=== PATIENT | female | born 1995 | race Hispanic/Latino ===

== ENCOUNTER 2016-10-13 12:18 | Observation (INO) | payer OTHER ==
[~2016-10-13] VITALS: Ht 160 cm; Wt 117.9 kg
[~2016-10-13 12:18] MED LIST: DOCU100C37 PO; FERR-74 PO; HYDR-3812 PO; IBUP-1773 PO; NITR-65 PO; PREN1TAB19 PO
[2016-10-13] MEDS ORDERED: cefTRIAXone INJECTION 2,000 MG in NS (IVPB) 50 ML IV ONE (13:00)
[2016-10-13] MEDS ORDERED: NS IV 1000 ML 1,000 ML IV SCH ×2 (13:00→15:30)
[2016-10-13] MEDS ORDERED: fentaNYL INJECTION 100 MCG/2 ML AMP IVP ONE ×2 (13:00→15:45)
[2016-10-13] MEDS ORDERED: methylPREDNISolone 125 MG (Solu-MEDROL) VIAL IVP ONE (13:00)
--- NOTE | 2016-10-13 13:07 | ED EENT ---
History of Present Illness General Chief Complaint: Oral/Throat Problems Stated Complaint: R SIDE OF FACE SWELLING, SWALLOWING DISCOMFORT Nursing Triage Note: PT STATES HAS HAD SORETHROAT FOR APPROX 2 WEEKS, R SIDE SWOLLEN AND VERY SORE UNABLE TO DRINK, SPITTING OUT OWN SLAVIA, BAD TASTE IN MOUTH, WAS SEEN AT [facility] LAST FRIDAY AND PUT ON ZYRTEC, STATES HAS FELT FEVERISH AT TIMES Source: patient, family History of Present Illness Time seen by provider: 13:02 Initial Comments This 20-year-old female presents with a severe progressive sore throat of 2 weeks' duration. The patient is unable to swallow her secretions. The patient denies airway impingement. The patient denies associated severe headache, stiff neck, productive cough, shortness of breath, nausea vomiting or diarrhea, chest pain or palpitations, or significant fever or chills. Patient had a similar but less severe presentation in the past requiring antibiotics. Allergies and Home Medications Allergies Coded Allergies: No Known Drug Allergies (Unverified , 11/16/15) Home Medications No Active Prescriptions or Reported Meds Review of Systems Constitutional: No chills, No fever Eyes: Denies Blurred Vision, Denies Pain Ears: Denies Pain, Denies Purulent Discharge Nose: denies epistaxis Mouth: denies swelling, denies bloody discharge, denies purulent discharge Throat: see HPI, pain, swelling, denies neck stiffness, painful swallowing, difficulty with fluids Respiratory: No cough, No short of breath Cardiovascular: No chest pain, No palpitations, No syncope Gastrointestinal: No abdominal pain, No diarrhea, No nausea, No vomiting : No Musculoskeletal: No back pain, No joint swelling Skin: No rash Neurological: No Symptoms Reported Hematologic/Lymphatic: No Symptoms Reported Past Riysgcu-Fyichx-Dwqusf Hx Patient Social History Alcohol Use: Denies Use Recreational Drug Use: No Smoking Status: Never a Smoker Recent Foreign Travel: No Contact w/Someone Who Travel: No Recent Infectious Disease Expo: No Recent Hopitalizations: No Ebola Symptoms: Denies Symptoms Listed Immunizations Up To Date PED Vaccines UTD: Yes Date of Influenza Vaccine: May 09, 2016 Seasonal Allergies Seasonal Allergies: No Respiratory Hx Respiratory Disorders: Yes Respiratory Disorders: Asthma Cardiovascular Hx Cardiac Disorders: No Neurological Hx Neurological Disorders: No Reproductive System Hx Reproductive Disorders: No Sexually Transmitted Disease: No HIV/AIDS: No Genitourinary Hx Genitourinary Disorders: No Gastrointestinal Hx Gastrointestinal Disorders: No Musculoskeletal Hx Musculoskeletal Disorders: No Endocrine Hx Endocrine Disorders: No HEENT HX ENT Disorders: No Cancer Hx Cancer: No Psychosocial Hx Psychiatric Problems: No Integumentary HX Skin/Integumentary Disorder: No Blood Transfusions Hx Blood Disorders: No Adverse Reaction to a Blood Tr: No Reviewed Nursing Assessment Reviewed/Agree w Nursing PMH: Yes Physical Exam Vital Signs Vital Sign - Last 12Hours 10/13/16 12:53 Temp 98.5 Pulse 100 Resp 18 B/P (MAP) 120/99 General Appearance: WD/WN, mild distress Ears: bilateral ear auricle normal Nose: normal inspection Mouth/Throat: No mandibular swelling, pharynx swelling, pharynx tenderness, No tongue swollen, tonsillar swelling, voice changes Neck: non-tender, full range of motion, supple, normal inspection Cardiovascular: regular rate, rhythm, no murmur Respiratory: chest non-tender, lungs clear, normal breath sounds Progress/Results/Core Measures Results/Orders Lab Results Laboratory Tests Test 10/13/16 12:50 10/13/16 13:32 10/13/16 14:03 Range/Units Group A Streptococcus Screen NEGATIVE NEGATIVE White Blood Count 17.5 H 4.3-11.0 10^3/uL Red Blood Count 4.57 4.35-5.85 10^6/uL Hemoglobin 10.8 L 11.5-16.0 G/DL Hematocrit 34 L 35-52 % Mean Corpuscular Volume 74 L 80-99 FL Mean Corpuscular Hemoglobin 24 L 25-34 PG Mean Corpuscular Hemoglobin Concent 32 32-36 G/DL Red Cell Distribution Width 15.5 H 10.0-14.5 % Platelet Count 432 H 130-400 10^3/uL Mean Platelet Volume 10.6 H 7.4-10.4 FL Neutrophils (%) (Auto) 81 H 42-75 % Lymphocytes (%) (Auto) 11 L 12-44 % Monocytes (%) (Auto) 7 0-12 % Eosinophils (%) (Auto) 1 0-10 % Basophils (%) (Auto) 0 0-10 % Neutrophils # (Auto) 14.2 H 1.8-7.8 X 10^3 Lymphocytes # (Auto) 2.0 1.0-4.0 X 10^3 Monocytes # (Auto) 1.3 H 0.0-1.0 X 10^3 Eosinophils # (Auto) 0.1 0.0-0.3 10^3/uL Basophils # (Auto) 0.0 0.0-0.1 10^3/uL Neutrophils % (Manual) 79 % Lymphocytes % (Manual) 16 % Monocytes % (Manual) 5 % Eosinophils % (Manual) 0 % Basophils % (Manual) 0 % Band Neutrophils 0 % Blood Morphology Comment NORMAL Lactic Acid Level 0.70 0.50-2.00 MMOL/L My Orders Orders - LYUBOV ALMONTE MD Cbc With Automated Diff (10/13/16 12:57) Blood Culture (10/13/16 12:57) Lactic Acid Analyzer (10/13/16 12:57) Ct Neck (Soft Tissue) W (10/13/16 12:59) Ns Iv 1000 Ml (Sodium Chloride 0.9%) (10/13/16 13:00) Fentanyl Injection (Sublimaze Injection (10/13/16 13:00) Methylprednisolone Sod Succ (Solu-Medrol (10/13/16 13:00) Ceftriaxone Injection (Rocephin Injectio (10/13/16 13:00) Iohexol Injection (Omnipaque 350 Mg/Ml 1 (10/13/16 13:15) Ns (Ivpb) (Sodium Chloride 0.9% Ivpb Bag (10/13/16 13:15) Rapid Strep A Screen (10/13/16 13:32) Manual Differential (10/13/16 13:32) Dexamethasone Injection (Decadron Inject (10/13/16 15:30) Cefuroxime Injection (Zinacef Injection) (10/13/16 15:30) Ns Iv 1000 Ml (Sodium Chloride 0.9%) (10/13/16 15:30) Medications Given in ED Current Medications Medications Dose Ordered Sig/Chasidy Route Start Time Stop Time Status Last Admin Dose Admin Ceftriaxone Sodium 2000 mg/ Sodium Chloride 50 ml @ 100 mls/hr ONCE ONCE IV 10/13/16 13:00 10/13/16 13:29 DC 10/13/16 14:00 100 MLS/HR Fentanyl Citrate 50 mcg ONCE ONCE IVP 10/13/16 13:00 10/13/16 13:02 DC 10/13/16 13:16 50 MCG Iohexol 75 ml ONCE ONCE IV 10/13/16 13:15 10/13/16 13:16 DC 10/13/16 14:34 75 ML Methylprednisolone Sodium Succinate 125 mg ONCE ONCE IVP 10/13/16 13:00 10/13/16 13:02 DC 10/13/16 13:15 125 MG Sodium Chloride 100 ml ONCE ONCE IV 10/13/16 13:15 10/13/16 13:16 DC 10/13/16 14:34 80 ML Vital Signs/I&O Vital Sign - Last 12Hours 10/13/16 12:53 Temp 98.5 Pulse 100 Resp 18 B/P (MAP) 120/99 Progress Note : Time: 15:35 Progress Note The patient's white count was 17,000. Her strep screen was negative. CT of the neck demonstrated what I interpreted as a right peritonsillar abscess. Initial treatment consisted of 2 g of Rocephin IV, 125 mg of Solu-Medrol IV and 50 g of fentanyl IV. Telephone consultation was undertaken with Dr. Drummond and associates. Kings Cramer, nurse practitioner was kind enough to admit the patient Dr. Drummond service. We discussed treatment and her wishes were for cefuroxime 1.5 g IV every 12 hrs, Decadron 8 mg IV every 8 hrs, and CONTINUE with fentanyl and Zofran for pain and nausea as needed. The patient was sent to a stepdown unit until improvement in her upper airway as the patient is still unwilling to attempt to swallow her secretions or take clear liquids. Departure Communication Time/Spoke to Admitting Phy: 15:38 Communication Kings Cramer NP for Dr. Drummond. Impression Impression: Primary Impression: Peritonsillar abscess Disposition: ADMITTED INPATIENT Condition: Improved Decision to Admit Reason: Admit from ER (General) Decision to Admit/Date: Oct 13, 2016 Time/Decision to Admit Time: 15:39 Departure-Patient Inst. Referrals: SHELLIE MONTILLA MD (PCP/Family) Primary Care Physician Scripts No Active Prescriptions or Reported Meds LYUBOV ALMONTE MD Oct 13, 2016 13:07
[2016-10-13] MEDS ORDERED: IOHEXOL 350 MG/ML 100 ML (OMNIPAQUE 350) VIAL IV ONE (13:15)
[2016-10-13] MEDS ORDERED: NS 100 ML (IVPB) BAG IV ONE (13:15)
[2016-10-13 13:51] LABS: BASOPHILS % (AUTO) 0 % (0-10); EOSINOPHILS # (AUTO) 0.1 10^3/uL (0.0-0.3); EOSINOPHILS % (AUTO) 1 % (0-10); LYMPHOCYTES % (AUTO) 11 % (12-44); MEAN CORPUSCULAR HEMOGLOBIN 24 PG (25-34); MEAN CORPUSCULAR HGB CONC 32 G/DL (32-36); MEAN CORPUSCULAR VOLUME 74 FL (80-99); MEAN PLATELET VOLUME 10.6 FL (7.4-10.4); MONOCYTES # (AUTO) 1.3 X 10^3 (0.0-1.0); MONOCYTES % (AUTO) 7 % (0-12); NEUTROPHILS # (AUTO) 14.2 X 10^3 (1.8-7.8); NEUTROPHILS % (AUTO) 81 % (42-75); PLATELET COUNT 432 10^3/uL (130-400); RED BLOOD COUNT 4.57 10^6/uL (4.35-5.85); RED CELL DISTRIBUTION WIDTH 15.5 % (10.0-14.5); WHITE BLOOD COUNT 17.5 10^3/uL (4.3-11.0)
[2016-10-13 14:17] LABS: BAND NEUTROPHILS 0 %; BASOPHILS % (MANUAL) 0 %; EOSINOPHILS % (MANUAL) 0 %; LYMPHOCYTES % (MANUAL) 16 %; NEUTROPHILS % (MANUAL) 79 %
[2016-10-13] MEDS ORDERED: CEFUROXIME INJECTION 1,500 MG in NS (IVPB) 50 ML IV ONE (15:30)
[2016-10-13] MEDS ORDERED: DEXAMETHASONE 4 MG/ML SDV (DECADRON) IV ONE (15:30)
--- NOTE | 2016-10-13 15:36 | Diagnostic Imaging Report ---
PROCEDURE: CT neck soft tissue with contrast. TECHNIQUE: Multiple contiguous axial images were obtained through the neck after the administration of contrast. INDICATION: Sore throat. COMPARISON: There are no prior studies available for comparison. FINDINGS: There is a faint 1.2 x 1.8 cm asymmetric area of diminished density in the right tonsillar fossa. I suspect that this is an early peritonsillar abscess. Direct visualization would be recommended. There is some narrowing of the airway due to the soft tissue edema involving the right tonsillar fossa but the airway is patent. There is no significant adenopathy in this area. There are a few small lymph nodes on each side of the neck, the largest nodes are on each submandibular region and measure approximately 1.5 cm in maximum dimension. The parotid and submandibular glands are unremarkable. The thyroid gland is also felt to be within normal limits. The lung apices and intracranial contents, where visualized, show no sign of an acute abnormality. Bone windows are unremarkable for a fracture or for a destructive lesion. IMPRESSION: 1. The findings do suggest an early peritonsillar abscess on the right. Direct visualization would be recommended. 2. There are slightly enlarged lymph nodes on each side of the neck. 3. No other mass or adenopathy is noted. Dictated by: Dictated on workstation # [id number]
[2016-10-13 16:30] VITALS: BP 140/79
[2016-10-13] MEDS ORDERED: fentaNYL INJECTION 100 MCG/2 ML AMP IVP PRN (17:00)
[2016-10-13] MEDS ORDERED: ONDANSETRON 4 MG/2 ML (SDV) Z0FRAN IVP PRN (17:00)
[2016-10-13] MEDS: NS IV 1000 ML 1,000 ML IV SCH (17:10)
[2016-10-13 19:34] VITALS: BP 123/63
[2016-10-13] MEDS: DEXAMETHASONE 4 MG/ML SDV (DECADRON) IV SCH (22:36)
[2016-10-14] VITALS: BP 110/53
[2016-10-14] MEDS: NS IV 1000 ML 1,000 ML IV SCH ×2 (01:00→04:41)
[2016-10-14 04:00] VITALS: BP 160/85
[2016-10-14] MEDS ORDERED: CEFUROXIME 1.5 GM/NS 50 ML IVPB IV SCH ×2 (04:00)
[2016-10-14 04:29] LABS: BASOPHILS % (AUTO) 0 % (0-10); EOSINOPHILS % (AUTO) 0 % (0-10); LYMPHOCYTES # (AUTO) 1.1 X 10^3 (1.0-4.0); LYMPHOCYTES % (AUTO) 8 % (12-44); MEAN CORPUSCULAR HEMOGLOBIN 23 PG (25-34); MEAN CORPUSCULAR HGB CONC 32 G/DL (32-36); MEAN CORPUSCULAR VOLUME 74 FL (80-99); MEAN PLATELET VOLUME 10.6 FL (7.4-10.4); MONOCYTES # (AUTO) 0.2 X 10^3 (0.0-1.0); MONOCYTES % (AUTO) 1 % (0-12); NEUTROPHILS # (AUTO) 13.1 X 10^3 (1.8-7.8); NEUTROPHILS % (AUTO) 91 % (42-75); PLATELET COUNT 430 10^3/uL (130-400); RED BLOOD COUNT 4.45 10^6/uL (4.35-5.85); RED CELL DISTRIBUTION WIDTH 15.3 % (10.0-14.5); WHITE BLOOD COUNT 14.5 10^3/uL (4.3-11.0)
[2016-10-14] MEDS: CEFUROXIME INJECTION 1,500 MG in NS (IVPB) 50 ML IV SCH ×2 (04:41→11:07)
[2016-10-14 04:58] LABS: ALANINE AMINOTRANSFERASE 36 U/L (0-55); ALBUMIN 3.8 G/DL (3.2-4.5); ANION GAP 10 MMOL/L (5-14); ASPARTATE AMINO TRANSFERASE 15 U/L (5-34); BILIRUBIN,TOTAL 0.4 MG/DL (0.1-1.0); BLOOD UREA NITROGEN 12 MG/DL (7-18); BUN/CREATININE RATIO 17; CALCIUM 9.4 MG/DL (8.5-10.1); CARBON DIOXIDE 18 MMOL/L (21-32); CHLORIDE 111 MMOL/L (98-107); CREATININE SERUM 0.69 MG/DL (0.60-1.30); GFR ESTIMATED > 60; GLUCOSE 130 MG/DL (70-105); POTASSIUM 4.2 MMOL/L (3.6-5.0); SODIUM 139 MMOL/L (135-145); TOTAL PROTEIN 7.8 G/DL (6.4-8.2)
--- NOTE | 2016-10-14 06:34 | Progress Note-Standard ---
Standard Progress Note Progress Notes/Assess & Plan Progress/Assessment & Plan ENT-Martine Doing wel lthis am Pain much improved Driniking liquids well-no breathing problems Trismus resolved OP-mild swelling in right peritonsillar region Good airway Neck-minimal tenderness IMP-Right Peritonsillar Cellulitis/ Early abscess REc: 1. Patient much improved. Will discharge after noon dose of antibiotics 2. Home on ceftin 250mg bid and a pred taper 3. Insturctions to call if symptoms worsen again 4. RTC-10-14 days ENT Clinic 5. If symptosm recure-will need I/D of right peritonsillar region 6. tylenol or ibuprofen as needed for discomfort Final Diagnosis Right Peritonsillar Cellulitis, ABscess SERINA PECK MD Oct 14, 2016 6:34 am
[2016-10-14] MEDS: DEXAMETHASONE 4 MG/ML SDV (DECADRON) IV SCH (06:54)
[2016-10-14 08:00] VITALS: BP 126/80
[2016-10-14] MEDS ORDERED: CATHETER FLUSH 10 ML SYR IV PRN (10:45)
[2016-10-14] MEDS ORDERED: CEFTIN PO ×2 (11:17→11:18)
[2016-10-14] MEDS ORDERED: PRD20T PO (11:17)
[2016-10-14 11:45] VITALS: BP 126/80
--- NOTE | 2016-10-28 14:16 | DISCHARGE SUMMARY ---
DATE OF ADMISSION: 10/13/2016 DATE OF DISCHARGE: 10/14/2016 PRINCIPAL DIAGNOSIS: 1. Bilateral acute pharyngitis. 2. Peritonsillar cellulitis. HOSPITAL COURSE: The patient was admitted to the hospital for IV antibiotics and steroids. She was given cefuroxime as well as Decadron. Over the first 24 hours she was in the hospital, she gained a significant improvement. She was able to eat and drink without difficulty. Her pain significantly decreased. She was subsequently discharged from observation with a return appointment to see us in 2 weeks. She was sent home on 2 weeks of Ceftin as well as a prednisone taper along with instructions to call or return to the emergency room if she had recurrent symptoms. Job ID: [id number] Dictated Date: 10/27/2016 10:35:42 Code And Test Clerk Date: 10/28/2016 14:12:37/[place]
--- OUTSIDE RECORDS SUMMARY | 2016-11-05 12:08 | XMS REPORT | Continuity of Care Document ---
Author Author [facility] Organization [facility] Address Unknown Phone Unavailable Allergies Active Description Code Type Severity Reaction Onset Reported/Identified Relationship to Patient Clinical Status Yes No Known Drug Allergies [id number] Drug Allergy Unknown N/ A 10/29/2015 Medications Problems Date Dx Coded Attending Type Code Diagnosis Diagnosed By 10/29/2015 GRACIE DYSON DO Ot O20.0 THREATENED 10/29/2015 GRACIE DYSON DO Ot O23.41 UNSP INFCT OF URINARY TRACT IN 10/31/2015 GRACIE DYSON DO Ot O20.0 THREATENED 10/31/2015 GRACIE DYSON DO Ot O23.41 UNSP INFCT OF URINARY TRACT IN Procedures Results Encounters ACCT No. Visit Date/Time Discharge Status Pt. Type Provider Facility Loc./Unit Complaint [id number] 10/29/2015 18:43:00 2015 20:35:00 DIS Emergency GRACIE DYSON DO [facility] ER [id number] 11/16/2015 14:08:00 ACT Outpatient JODY ORTEGA DO [facility] RAD
--- OUTSIDE RECORDS SUMMARY | 2016-11-05 12:21 | XMS REPORT | Continuity of Care Document ---
Author Author [facility] Organization [facility] Address Unknown Phone Unavailable Allergies Active Description Code Type Severity Reaction Onset Reported/Identified Relationship to Patient Clinical Status Yes No Known Drug Allergies [id number] Drug Allergy Unknown N/ A 10/29/2015 Medications [...] Status Pt. Type Provider Facility Loc./Unit Complaint [id number] 10/29/2015 18:43:00 2015 20:35:00 DIS Emergency GRACIE DYSON DO [facility] ER [id number] 11/16/2015 14:08:00 ACT Outpatient JODY ORTEGA DO [facility] RAD
== END 2016-10-14 06:35 | disposition home or self-care (01) ==
LOC: DELPENDDIS → EDUNIT# 12:18 → ER 12:21 → UNDOADMOB 15:30 → ICU 15:30 → UNDODISOB 10-14 12:30
PROVIDERS: ADMIT Otolaryngology Otolaryngology/Facial Plastic Surgery; ATTEND Otolaryngology Otolaryngology/Facial Plastic Surgery
DX: J36 Peritonsillar abscess (principal)
CPT/HCPCS: 36415; 70491; 80053; 83605; 85007; 85025; 85027; 87040; 87430; 94760; 96361; 96365; 96375; 96376; G0378

== ENCOUNTER → 2017-03-19 | Outpatient (CLI) | payer OTHER ==
[~2017-03-19] MED LIST changes: +AMOX500C2; +CEFTIN PO; +CEPH-507 PO; +PRD20T PO; +PREN-8 PO
--- NOTE | 2017-03-19 19:40 | Diagnostic Imaging Report ---
PROCEDURE: US OB SINGLE FETUS <14 WKS. TECHNIQUE: Multiple real-time grayscale images were obtained over the gravid uterus in various projections. INDICATION: Uncertain dates. FINDINGS: There are no prior studies available for comparison. There is a gestational sac within the uterus containing a single live fetus. heart motion is noted and a rate of 169 bpm is recorded. There are no obvious abnormalities identified. The amniotic fluid volume is within normal limits. At this time, it is not certain where the placenta will develop. 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 The ovaries are not identified. There is no pelvic mass or free fluid collection to suggest an acute abnormality. IMPRESSION: 1. There is a gestational sac within the uterus containing a single live fetus of approximately 8 weeks gestation +/- 1 week. The EDC is October 28, 2017. 2. There are no obvious abnormalities identified. If a more sensitive evaluation of the anatomy is desired, then a short-term (10-12 weeks) follow-up ultrasound exam should be obtained. 3. 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 Dictated by: Dictated on workstation # [id number]
== END ==
LOC: RAD 14:03
PROVIDERS: ATTEND Family Medicine
DX: Z36 Encounter for antenatal screening of mother (principal); Z3A.08 8 weeks gestation of pregnancy
CPT/HCPCS: 76801

== ENCOUNTER 2017-04-23 06:58 | Emergency (ER) | payer OTHER ==
[~2017-04-23] VITALS: Ht 160 cm; Wt 115.7 kg
[~2017-04-23 06:58] MED LIST changes: -AMOX500C2; -CEPH-507 PO; -PREN-8 PO
--- OUTSIDE RECORDS SUMMARY | 2017-04-23 07:08 | XMS REPORT | Continuity of Care Document ---
Author Author [facility] Organization [facility] Address Unknown Phone Unavailable Allergies Active Description Code Type Severity Reaction Onset Reported/Identified Relationship to Patient Clinical Status Yes No Known Drug Allergies [id number] Drug Allergy Unknown N/ A 10/29/2015 Medications [...] Status Pt. Type Provider Facility Loc./Unit Complaint [id number] 11/16/2015 14:08:00 2015 23:59:59 CLS Outpatient JODY ORTEGA DO [facility] RAD [id number] 10/29/2015 18:43:00 2015 20:35:00 DIS Emergency GRACIE DYSON DO [facility] ER
[2017-04-23] MEDS ORDERED: AMOX500C2 (07:25)
--- NOTE | 2017-04-23 07:33 | ED Integumentary General ---
General Chief Complaint: Skin/Wound Problems Stated Complaint: TONSILS,3 MONTHS PREG,WANTS BABY CHECKED Nursing Triage Note: ARRIVED VIA AMB WITH COMPLAINTS OF RIGHT SIDED THROAT PAIN SINCE FRIDAY. SEEN WALK IN [facility] FRIDAY AND PRESCRIBED UNKNOWN ABX THAT SHE STATES IS NOT WORKING. Source: patient Exam Limitations: no limitations History of Present Illness Time seen by provider: 07:28 Initial Comments The patient is a 21-year-old female. She presents with a complaint of right tonsillar pain. She was seen at [facility] on Friday and given an antibiotic. She states that she had a strep smear which was negative. She had a baby about June 13. Earlier in that she had a brief admission for tonsillitis. She states that she was diagnosed as having a tonsillar abscess. She was supposed to consider a tonsillectomy but was again before she was able to complete that process. She denies fever or difficulty swallowing. Timing/Duration: week Allergies and Home Medications Allergies Coded Allergies: No Known Drug Allergies (Unverified , 11/16/15) Home Medications Amoxicillin 500 Mg Capsule, (Reported) Constitutional: see HPI EENTM: see HPI, throat pain Respiratory: no symptoms reported Cardiovascular: no symptoms reported Gastrointestinal: no symptoms reported Genitourinary: no symptoms reported Musculoskeletal: no symptoms reported Skin: no symptoms reported Psychiatric/Neurological: No Symptoms Reported Endocrine: No Symptoms Reported Hematologic/Lymphatic: No Symptoms Reported Past Myjvncw-Qmofzu-Dmnbtu Hx Patient Social History Recent Foreign Travel: No Contact w/Someone Who Travel: No Recent Infectious Disease Expo: No Recent Hopitalizations: No Immunizations Up To Date PED Vaccines UTD: Yes Date of Influenza Vaccine: May 09, 2016 Seasonal Allergies Seasonal Allergies: No Surgeries History of Surgeries: Yes Surgeries: Section Respiratory History of Respiratory Disorde: Yes Respiratory Disorders: Asthma Cardiovascular History of Cardiac Disorders: No Neurological History of Neurological Disord: No Reproductive System Hx Reproductive Disorders: No Sexually Transmitted Disease: No HIV/AIDS: No Genitourinary History of Genitourinary Disor: No Gastrointestinal History of Gastrointestinal Di: No Musculoskeletal History of Musculoskeletal Dis: No Endocrine History of Endocrine Disorders: No Cancer History of Cancer: No Psychosocial History of Psychiatric Problem: No Integumentary History of Skin or Integumenta: No Blood Transfusions History of Blood Disorders: No Adverse Reaction to a Blood Tr: No Physical Exam Vital Signs Vital Sign - Last 12Hours 10/11/17 07:12 Temp 98.0 Pulse 78 Resp 18 B/P (MAP) 133/80 Pulse Ox 98 Capillary Refill : Less Than 3 Seconds General Appearance: WD/WN, no apparent distress HEENT: normal ENT inspection Neck: lymphadenopathy (R) Cardiovascular: normal peripheral pulses, regular rate, rhythm, no edema, no gallop, no JVD, no murmur Respiratory: chest non-tender, lungs clear, normal breath sounds, no respiratory distress, no accessory muscle use Comments No rashes noted Progress/Results/Core Measures Results/Orders Lab Results Laboratory Tests Test 04/23/17 07:40 Range/Units White Blood Count 9.6 4.3-11.0 10^3/uL Red Blood Count 4.30 L 4.35-5.85 10^6/uL Hemoglobin 11.0 L 11.5-16.0 G/DL Hematocrit 34 L 35-52 % Mean Corpuscular Volume 78 L 80-99 FL Mean Corpuscular Hemoglobin 26 25-34 PG Mean Corpuscular Hemoglobin Concent 33 32-36 G/DL Red Cell Distribution Width 16.6 H 10.0-14.5 % Platelet Count 286 130-400 10^3/uL Mean Platelet Volume 11.2 H 7.4-10.4 FL Neutrophils (%) (Auto) 77 H 42-75 % Lymphocytes (%) (Auto) 13 12-44 % Monocytes (%) (Auto) 9 0-12 % Eosinophils (%) (Auto) 1 0-10 % Basophils (%) (Auto) 0 0-10 % Neutrophils # (Auto) 7.4 1.8-7.8 X 10^3 Lymphocytes # (Auto) 1.3 1.0-4.0 X 10^3 Monocytes # (Auto) 0.8 0.0-1.0 X 10^3 Eosinophils # (Auto) 0.1 0.0-0.3 10^3/uL Basophils # (Auto) 0.0 0.0-0.1 10^3/uL Group A Streptococcus Screen NEGATIVE NEGATIVE My Orders Orders - LEONID LYLES MD Cbc With Automated Diff (04/23/17 07:34) Rapid Strep A Screen (04/23/17 07:34) Vital Signs/I&O Vital Sign - Last 12Hours 04/23/17 07:12 Temp 98.0 Pulse 78 Resp 18 B/P (MAP) 133/80 Pulse Ox 98 Blood Pressure Mean: 97 Departure Communication (Admissions) Progress Notes 08 16 rapid strep is negative white count is 9000. Impression Impression: Primary Impression: viral tonsillitis Disposition: HOME, SELF-CARE Condition: Stable/Unchanged Departure-Patient Inst. Referrals: SHELLIE MONTILLA MD (PCP/Family) Primary Care Physician Add. Discharge Instructions: All discharge instructions reviewed with patient and/or family. Voiced understanding. Continue antibiotic given to you at [facility]. Use Chloraseptic or Cepastat mouthwash/gargle for tonsillar discomfort See [facility] for further problems LEONID LYLES MD Apr 23, 2017 07:33
[2017-04-23 07:48] LABS: BASOPHILS % (AUTO) 0 % (0-10); EOSINOPHILS # (AUTO) 0.1 10^3/uL (0.0-0.3); EOSINOPHILS % (AUTO) 1 % (0-10); LYMPHOCYTES # (AUTO) 1.3 X 10^3 (1.0-4.0); LYMPHOCYTES % (AUTO) 13 % (12-44); MEAN CORPUSCULAR HEMOGLOBIN 26 PG (25-34); MEAN CORPUSCULAR HGB CONC 33 G/DL (32-36); MEAN CORPUSCULAR VOLUME 78 FL (80-99); MEAN PLATELET VOLUME 11.2 FL (7.4-10.4); MONOCYTES # (AUTO) 0.8 X 10^3 (0.0-1.0); MONOCYTES % (AUTO) 9 % (0-12); NEUTROPHILS # (AUTO) 7.4 X 10^3 (1.8-7.8); NEUTROPHILS % (AUTO) 77 % (42-75); PLATELET COUNT 286 10^3/uL (130-400); RED CELL DISTRIBUTION WIDTH 16.6 % (10.0-14.5); WHITE BLOOD COUNT 9.6 10^3/uL (4.3-11.0)
[2017-04-23 08:24] VITALS: BP 133/80
== END 2017-04-23 08:24 | disposition home or self-care (01) ==
LOC: EDUNIT# 06:58 → ER 07:04
DX: O99.511 Diseases of the respiratory system complicating pregnancy, first trimester (principal); J03.90 Acute tonsillitis, unspecified; J45.909 Unspecified asthma, uncomplicated; Z87.59 Personal history of other complications of pregnancy, childbirth and the puerperium; Z3A.00 Weeks of gestation of pregnancy not specified
CPT/HCPCS: 36415; 85025; 87430; 99283

== ENCOUNTER 2017-05-29 19:11 | Emergency (ER) | payer SELFPAY ==
[~2017-05-29] VITALS: Ht 160 cm; Wt 115.7 kg
[~2017-05-29 19:11] MED LIST changes: +AMOX500C2
--- OUTSIDE RECORDS SUMMARY | 2017-05-29 19:19 | XMS REPORT | Continuity of Care Document ---
Author Author [facility] Organization [facility] Address Unknown Phone Unavailable Allergies Active Description Code Type Severity Reaction Onset Reported/Identified Relationship to Patient Clinical Status Yes No Known Drug Allergies [id number] Drug Allergy Unknown N/ A 10/29/2015 Medications [...] Status Pt. Type Provider Facility Loc./Unit Complaint [id number] 11/16/2015 14:08:00 2015 23:59:59 CLS Outpatient JODY ORTEGA DO [facility] RAD [id number] 10/29/2015 18:43:00 2015 20:35:00 DIS Emergency GRACIE DYSON DO [facility] ER
[2017-05-29 19:43] LABS: BILIRUBIN,URINE NEGATIVE (NEGATIVE); KETONES,URINE NEGATIVE (NEGATIVE); LEUKOCYTE ESTERASE ,URINE 2+ (NEGATIVE); NITRITE,URINE NEGATIVE (NEGATIVE); PH,URINE 7 (5-9); PROTEIN,URINE NEGATIVE (NEGATIVE); UROBILINOGEN,URINE NORMAL (NORMAL)
[2017-05-29] MEDS ORDERED: PREN-8 PO (19:50)
--- NOTE | 2017-05-29 20:11 | ED GU-Female ---
General Chief Complaint: -Female Stated Complaint: 18 WKS ;BACK PAIN Nursing Triage Note: pt c/o low back pain x 2 days with right lower quadrant abd pain. also c/o persistent fatigue et nausea. Nursing Sepsis Screen: No Definite Risk Source: patient Exam Limitations: no limitations Allergies and Home Medications Allergies Coded Allergies: No Known Drug Allergies (Unverified , 11/16/15) Home Medications Vit W-Ca,Fe,FA(<1 mg) 1 Each Tablet, 1 EACH PO DAILY, (Reported) Expected Date of Delivery: Oct 28, 2017 Past Tgotrwa-Idyonn-Zpkopm Hx Patient Social History Alcohol Use: Denies Use Recreational Drug Use: No Smoking Status: Never a Smoker Recent Foreign Travel: No Contact w/Someone Who Travel: No Recent Infectious Disease Expo: No Recent Hopitalizations: No Immunizations Up To Date PED Vaccines UTD: Yes Date of Influenza Vaccine: May 09, 2016 Seasonal Allergies Seasonal Allergies: No Surgeries History of Surgeries: Yes Surgeries: Section Respiratory History of Respiratory Disorde: Yes Respiratory Disorders: Asthma Cardiovascular History of Cardiac Disorders: No Neurological History of Neurological Disord: No Reproductive System Expected Date of Delivery: Oct 28, 2017 Hx : 2 Hx Para: 1 Hx Reproductive Disorders: No Sexually Transmitted Disease: No HIV/AIDS: No Genitourinary History of Genitourinary Disor: No Gastrointestinal History of Gastrointestinal Di: No Musculoskeletal History of Musculoskeletal Dis: No Endocrine History of Endocrine Disorders: No Cancer History of Cancer: No Psychosocial History of Psychiatric Problem: No Integumentary History of Skin or Integumenta: No Blood Transfusions History of Blood Disorders: No Adverse Reaction to a Blood Tr: No Physical Exam Vital Signs Vital Sign - Last 12Hours 05/29/17 19:39 Temp 97.7 Pulse 93 Resp 16 B/P (MAP) 111/88 Capillary Refill : Less Than 3 Seconds Progress/Results/Core Measures Suspected Sepsis Recent Fever Within 48 Hours: No Infection Criteria Present: None New/Unexplained Altered Menta: No Sepsis Screen: No Definite Risk Sepsis Diagnosis: SIRS Temperature:97.7 Pulse: 93 Respiratory Rate: 16 Blood Pressure 111 /88 Mean: 96 Results/Orders Lab Results Laboratory Tests Test 05/29/17 19:40 Range/Units Urine Color YELLOW Urine Clarity CLEAR Urine pH 7 5-9 Urine Specific [place] 1.010 L 1.016-1.022 Urine Protein NEGATIVE NEGATIVE Urine Glucose (UA) NEGATIVE NEGATIVE Urine Ketones NEGATIVE NEGATIVE Urine Nitrite NEGATIVE NEGATIVE Urine Bilirubin NEGATIVE NEGATIVE Urine Urobilinogen NORMAL NORMAL MG/DL Urine Leukocyte Esterase 2+ H NEGATIVE Urine RBC (Auto) NEGATIVE NEGATIVE Urine RBC NONE /HPF Urine WBC 5-10 H /HPF Urine Squamous Epithelial Cells 5-10 /HPF Urine Crystals NONE /LPF Urine Bacteria MODERATE H /HPF Urine Casts NONE /LPF Urine Mucus NEGATIVE /LPF Urine Culture Indicated YES My Orders Orders - TOMAS MIXON MD Ua Culture If Indicated (05/29/17 19:30) Urine Culture (05/29/17 19:40) Cephalexin Capsule (Keflex Capsule) (05/29/17 20:15) Medications Given in ED Current Medications Medications Dose Ordered Sig/Chasidy Route Start Time Stop Time Status Last Admin Dose Admin Cephalexin HCl 500 mg ONCE ONCE PO 05/29/17 20:15 05/29/17 20:16 DC 05/29/17 20:31 500 MG Vital Signs/I&O Vital Sign - Last 12Hours 05/29/17 19:39 Temp 97.7 Pulse 93 Resp 16 B/P (MAP) 111/88 Capillary Refill : Less Than 3 Seconds Blood Pressure Mean: 96 Departure Impression Impression: Primary Impression: Urinary tract infection Qualified Codes: N39.0 - Urinary tract infection, site not specified Additional Impressions: Back ache Qualified Codes: M54.5 - Low back pain Nausea and vomiting Qualified Codes: R11.2 - Nausea with vomiting, unspecified Round ligament pain Disposition: 01 HOME, SELF-CARE Condition: Improved Departure-Patient Inst. Decision time for Depature: 20:00 Referrals: SHELLIE SARABIA MD (PCP/Family) Primary Care Physician Patient Instructions: Round Ligament Pain, Urinary Tract Infection, Adult (DC) Add. Discharge Instructions: For pain and you may take Tylenol (acetaminophen) up to 1000 g every 6 hours as needed. Gentle heat such as a warm bath may also be helpful. Drink plenty of clear liquids. Complete your antibiotics as prescribed. Please follow-up with Dr. Sarabia early next week to review your urine culture. For nausea, you may take Unisom (doxylamine) at bedtime to help with nausea on the next day. You should also eat small meals and healthy snacks throughout the day to help prevent nausea. Return to the emergency room if symptoms worsen. All discharge instructions reviewed with patient and/or family. Voiced understanding. Scripts Cephalexin (Keflex) 500 Mg Capsule 500 MG PO QID, #28 CAP Prov: TOMAS MIXON MD 05/29/17 Copy Copies To 1: SHELLIE SARABIA MD, JOSHUA T MD May 29, 2017 20:11
[2017-05-29] MEDS: CEPHALEXIN 250 MG (KEFLEX) CAP PO ONE (20:31)
[2017-05-29 20:33] VITALS: BP 113/78
[2017-05-29] MEDS ORDERED: CEPH-507 PO (20:33)
== END 2017-05-29 20:33 | disposition home or self-care (01) ==
LOC: EDUNIT# 19:11 → ER 19:13
DX: O23.42 Unspecified infection of urinary tract in pregnancy, second trimester (principal); O99.89 Other specified diseases and conditions complicating pregnancy, childbirth and the puerperium; M54.5 Low back pain; R10.2 Pelvic and perineal pain; O99.512 Diseases of the respiratory system complicating pregnancy, second trimester; J45.909 Unspecified asthma, uncomplicated; Z3A.18 18 weeks gestation of pregnancy; Z87.19 Personal history of other diseases of the digestive system
CPT/HCPCS: 81000; 87088; 99283

== ENCOUNTER → 2017-06-12 | Outpatient (CLI) | payer SELFPAY ==
[~2017-06-12] MED LIST changes: +CEPH-507 PO; +PREN-8 PO
--- NOTE | 2017-06-12 18:27 | Diagnostic Imaging Report ---
INDICATION: Undergoing anatomical evaluation. TECHNIQUE: Multiple real-time grayscale images were obtained over the gravid uterus. COMPARISON: 03/19/2017. FINDINGS: Fetus is currently in cephalic presentation. Normal amount of amniotic fluid. The anteriorly positioned placenta is without previa. The visualized anatomical structures appearing unremarkable. The kidneys, heart, spine, as well as cord insertion site however are not well assessed at this examination. Biometrical measurements are as follows: Biparietal 4.86 cm, age 20 weeks 5 days. Head circumference 17.84 cm, age 20 weeks 3 days. Abdominal circumference 15.78 cm, age 21 weeks 0 days. Femur length 3.89 cm, age 22 weeks 4 days. Sonographic estimate age: 21 weeks 2 days. Sonographic estimated date of delivery: 10-21-17. Estimated Weight: 426 gm (+/- 62 gm). LMP percentile: 96%. heart rate: 134 beats per minute. number: 1 of 1. IMPRESSION: 1. Single intrauterine in a cephalic presentation. Sonographic estimated age is 21 weeks 2 days for an estimated date of delivery of October 21, 2017. 2. No abnormalities are noted at this time. However, multiple anatomical structures including the kidneys, heart, spine, and cord insertion site cannot be well evaluated at this current examination. Dictated by: Dictated on workstation # [id number]
== END ==
LOC: RAD 13:01
PROVIDERS: ATTEND Family Medicine
DX: Z34.92 Encounter for supervision of normal pregnancy, unspecified, second trimester (principal); Z3A.21 21 weeks gestation of pregnancy
CPT/HCPCS: 76805

== ENCOUNTER → 2017-08-13 | Outpatient (CLI) | payer SELFPAY ==
[~2017-08-13] MED LIST changes: +ACHD5005 PO; -FERR-74 PO; +FERR325T18 PO; -HYDR-3812 PO
--- NOTE | 2017-08-13 15:10 | Diagnostic Imaging Report ---
INDICATION: survey. TECHNIQUE: Multiple real-time grayscale images were obtained over the gravid uterus. COMPARISON: 06/12/2017. FINDINGS: There is a single live fetus in a breech presentation. The placenta is anterior. The amniotic fluid volume is normal. heart rate was recorded at 124 beats per minute. Study is limited due to patient body habitus and baby's breech position. Due to this, four-chamber heart view, kidneys, spine, and cord insertion were not well visualized. IMPRESSION: Continued limited survey, as described above. No gross abnormality is detected. Continued followup could be performed. Dictated by: Dictated on workstation # [id number]
== END ==
LOC: RAD 10:50
PROVIDERS: ATTEND Family Medicine
DX: Z36.89 Encounter for other specified antenatal screening (principal); Z3A.23 23 weeks gestation of pregnancy
CPT/HCPCS: 76816

== ENCOUNTER 2017-10-13 14:26 | Inpatient (IN) | payer OTHER ==
[~2017-10-13] VITALS: Ht 160 cm; Wt 115.7 kg
[2017-10-13] VITALS (11 sets, daily range): BP systolic 119–164; BP diastolic 52–92
[2017-10-13 15:09] LABS: BILIRUBIN,URINE NEGATIVE (NEGATIVE); CLARITY,URINE CLEAR; COLOR,URINE YELLOW; GLUCOSE, URINE (UA) NEGATIVE (NEGATIVE); KETONES,URINE NEGATIVE (NEGATIVE); LEUKOCYTE ESTERASE ,URINE 2+ (NEGATIVE); NITRITE,URINE NEGATIVE (NEGATIVE); PH,URINE 6.5 (5-9); PROTEIN,URINE 2+ (NEGATIVE); UROBILINOGEN,URINE NORMAL (NORMAL)
[2017-10-13 15:29] LABS: BASOPHILS % (AUTO) 0 % (0-10); EOSINOPHILS # (AUTO) 0.1 10^3/uL (0.0-0.3); EOSINOPHILS % (AUTO) 1 % (0-10); HEMATOCRIT 32 % (35-52); HEMOGLOBIN 10.3 G/DL (11.5-16.0); LYMPHOCYTES # (AUTO) 2.3 X 10^3 (1.0-4.0); LYMPHOCYTES % (AUTO) 16 % (12-44); MEAN CORPUSCULAR HEMOGLOBIN 25 PG (25-34); MEAN CORPUSCULAR HGB CONC 33 G/DL (32-36); MEAN CORPUSCULAR VOLUME 78 FL (80-99); MEAN PLATELET VOLUME 11.1 FL (7.4-10.4); MONOCYTES # (AUTO) 1.2 X 10^3 (0.0-1.0); MONOCYTES % (AUTO) 8 % (0-12); NEUTROPHILS % (AUTO) 75 % (42-75); PLATELET COUNT 417 10^3/uL (130-400); RED BLOOD COUNT 4.05 10^6/uL (4.35-5.85); RED CELL DISTRIBUTION WIDTH 15.2 % (10.0-14.5); WHITE BLOOD COUNT 14.6 10^3/uL (4.3-11.0)
[2017-10-13 15:39] LABS: BACTERIA,URINE FEW /HPF
[2017-10-13 15:51] LABS: ALANINE AMINOTRANSFERASE 16 U/L (0-55); ALBUMIN 3.3 GM/DL (3.2-4.5); ALKALINE PHOSPHATASE 125 U/L (40-136); BILIRUBIN,TOTAL 0.2 MG/DL (0.1-1.0); BUN/CREATININE RATIO 16; CARBON DIOXIDE 20 MMOL/L (21-32); CHLORIDE 108 MMOL/L (98-107); CREATININE SERUM 0.58 MG/DL (0.60-1.30); GFR ESTIMATED > 60; GLUCOSE 78 MG/DL (70-105); POTASSIUM 4.7 MMOL/L (3.6-5.0); SODIUM 135 MMOL/L (135-145); URIC ACID 3.6 MG/DL (2.6-7.2)
[2017-10-13 15:58] LABS: NEUTROPHILS % (MANUAL) 76 %
[2017-10-13 15:59] LABS: ANISOCYTOSIS SLIGHT; BAND NEUTROPHILS 1 %; BASOPHILS % (MANUAL) 0 %; EOSINOPHILS % (MANUAL) 3 %; LYMPHOCYTES % (MANUAL) 14 %; MONOCYTES % (MANUAL) 6 %
[2017-10-13] MEDS ORDERED: LACTATED RINGERS 1,000 ML IV PRN (16:18)
--- NOTE | 2017-10-13 16:22 | Diagnostic Imaging Report ---
INDICATION: Gestational hypertension. TECHNIQUE: Multiple real-time grayscale images were obtained over the gravid uterus. COMPARISON: 08/13/2017. FINDINGS: There is a single living intrauterine in a cephalic presentation. Biometry correlates with a gestational age of 37 weeks 1 day. Amniotic fluid index is 3.9. Placenta is anterior. There is no previa. Heart rate is 134 beats per minute and regular. The biophysical profile score is 6/8 due to the largest pocket of amniotic fluid measuring 1.8 cm vertically. IMPRESSION: biophysical score of 6/8 due to oligohydramnios. Biometry correlates with a gestational age of 37 weeks 1 day and estimated date of confinement of November 02, 2017. Biometrical measurements are as follows: Biparietal 9.3 cm, age 37 weeks 5 days. Head circumference 33.6 cm, age 38 weeks 4 days. Abdominal circumference 31.3 cm, age 35 weeks 2 days. Femur length 7.2 cm, age 36 weeks 6 days. Sonographic estimate age: 37 weeks 1 day. Sonographic estimated date of delivery: . Estimated Weight: 2878 gm (+/- 420 gm). LMP percentile: 21%. heart rate: 134 beats per minute. number: 1 of 1. Dictated by: Dictated on workstation # [id number]
[2017-10-13] MEDS ORDERED: CITRIC ACID/SOB CIT (BICITRA) 30 ML UDC PO ONE (16:30)
[2017-10-13] MEDS ORDERED: CATHETER FLUSH 10 ML SYR IV PRN (16:30)
[2017-10-13] MEDS ORDERED: FAMOTIDINE 20MG/2ML IV (PEPCID) IV ONE (16:30)
[2017-10-13] MEDS ORDERED: METOCLOPRAMIDE INJ 10 MG/2 ML (REGLAN) IV ONE (16:30)
--- OUTSIDE RECORDS SUMMARY | 2017-10-13 16:35 | XMS REPORT | Continuity of Care Document ---
Author Author [facility] Organization [facility] Address Unknown Phone Unavailable Allergies Active Description Code Type Severity Reaction Onset Reported/Identified Relationship to Patient Clinical Status Yes No Known Drug Allergies [id number] Drug Allergy Unknown N/A 10/29/2015 Medications There is no data. Problems Date Dx Coded Attending Type Code Diagnosis Diagnosed By 10/29/2015 GRACIE DYSON DO Ot O20.0 THREATENED 10/29/2015 GRACIE DYSON DO Ot O23.41 UNSP INFCT OF URINARY TRACT IN 10/31/2015 KIEL MONTOYA GRACIE K Ot O20.0 THREATENED 10/31/2015 KIEL GRACIE MONTOYA Ot O23.41 UNSP INFCT OF URINARY TRACT IN Procedures There is no data. Results Test Result Range Urine Culture, Routine - 11/22/16 17:32 Urine Culture, Routine Note Genital Culture, Routine - 03/12/17 16:35 Genital Culture, Routine Note CULTURE, URINE - 03/12/17 16:35 Urine Culture, Routine Final report NRG Result 1 No growth NRG CULTURE, GENITAL - 03/12/17 16:35 Genital Culture, Routine Final report NRG Result 1 NRG CBC With Differential/Platelet - 03/12/17 16:35 WBC 9.3 x10E3/uL 3.4-10.8 RBC 4.38 x10E6/uL 3.77-5.28 Hemoglobin 10.7 g/dL 11.1-15.9 Hematocrit 33.7 % 34.0-46.6 MCV 77 fL 79-97 MCH 24.4 pg 26.6-33.0 MCHC 31.8 g/dL 31.5-35.7 RDW 16.0 % 12.3-15.4 Platelets 383 x10E3/uL 150-379 Neutrophils 71 % Lymphs 20 % Monocytes 7 % Eos 2 % Basos 0 % Neutrophils (Absolute) 6.6 x10E3/uL 1.4-7.0 Lymphs (Absolute) 1.9 x10E3/uL 0.7-3.1 Monocytes(Absolute) 0.6 x10E3/uL 0.1-0.9 Eos (Absolute) 0.2 x10E3/uL 0.0-0.4 Baso (Absolute) 0.0 x10E3/uL 0.0-0.2 Immature Granulocytes 0 % Immature Grans (Abs) 0.0 x10E3/uL 0.0-0.1 ABO Grouping and Rho(D) Typing - 03/12/17 16:35 ABO Grouping O Rh Factor Positive TSH - 03/12/17 16:35 TSH 1.690 uIU/mL 0.450-4.500 Rubella Antibodies, IgG - 03/12/17 16:35 Rubella Antibodies, IgG 2.47 index Immune >0.99 Antibody Screen - 03/12/17 16:35 Antibody Screen Negative Negative Urine Culture, Routine - 03/12/17 16:35 Urine Culture, Routine Note CBC - 07/30/17 15:56 WHITE BLOOD CELL COUNT 13.6 Thousand/uL 3.8-10.8 RED BLOOD CELL COUNT 3.86 Million/uL 3.80-5.10 HEMOGLOBIN 10.3 g/dL 11.7-15.5 HEMATOCRIT 31.4 % 35.0-45.0 MCV 81.3 fL 80.0-100.0 MCH 26.7 pg 27.0-33.0 MCHC 32.8 g/dL 32.0-36.0 RDW 14.0 % 11.0-15.0 PLATELET COUNT 392 Thousand/uL 140-400 MPV 11.3 fL 7.5-12.5 ABSOLUTE NEUTROPHILS 06589 cells/uL 9483-7934 ABSOLUTE LYMPHOCYTES 2108 cells/uL 850-3900 ABSOLUTE MONOCYTES 857 cells/uL 200-950 ABSOLUTE EOSINOPHILS 204 cells/uL 15-500 ABSOLUTE BASOPHILS 27 cells/uL 0-200 NEUTROPHILS 76.5 % NRG LYMPHOCYTES 15.5 % NRG MONOCYTES 6.3 % NRG EOSINOPHILS 1.5 % NRG BASOPHILS 0.2 % NRG CULTURE, GENITAL - 09/03/17 16:31 CULTURE, GENITAL SEE NOTE NRG Encounters ACCT No. Visit Date/Time Discharge Status Pt. Type Provider Facility Loc./Unit Complaint [id number] 11/16/2015 14:08:00 11/16/2015 23:59:59 CLS Outpatient JODY ORTEGA DO [facility] RAD [id number] 10/29/2015 18:43:00 10/29/2015 20:35:00 DIS Emergency GRACIE DYSON DO [facility] ER [id number] 03/15/2017 12:07:00 Document Registration [id number] 09/17/2017 15:00:00 09/17/2017 23:59:59 CLS Outpatient SHASHA ANGEL MD [facility] [id number] 09/03/2017 15:00:00 Document Registration [id number] 07/30/2017 14:45:00 Document Registration [id number] 03/12/2017 15:30:00 Document Registration [id number] 11/27/2016 03:07:00 Document Registration [id number] 03/14/2017 03:08:00 Document Registration
[2017-10-13] MEDS: LACTATED RINGERS 1,000 ML IV PRN ×2 (16:52→19:10)
--- NOTE | 2017-10-13 17:23 | History & Physical-OB ---
OB - Chief Complaint & HPI Date/Time Date of Admission: Date of Admission: Oct 13, 2017 at 4:15 pm Time Seen by Provider: 14:00 Chief Complaint/History OB-Reason for Admission/Chief: Section Hx : 2 Hx Para: 1 Expected Date of Delivery: Oct 28, 2017 Gestational Age in Weeks: 37 Gestational Age in Days: 5 Indication for : desires repeat Other reason for admission: Patient presented to my office for consult for RLTCS. She had elevated BP 140/ 90 in the office and decreased movement. She was sent upstairs for further workup, including BPP and EFW. Admission Nurse Assessment Rev: Yes History of Labs See [facility] prenatals Laboratory Tests Test 10/13/17 14:50 10/13/17 15:15 Range/Units Urine Color YELLOW Urine Clarity CLEAR Urine pH 6.5 5-9 Urine Specific [place] 1.010 L 1.016-1.022 Urine Protein 23 H 6-12 MG/DL Urine Glucose (UA) NEGATIVE NEGATIVE Urine Ketones NEGATIVE NEGATIVE Urine Nitrite NEGATIVE NEGATIVE Urine Bilirubin NEGATIVE NEGATIVE Urine Urobilinogen NORMAL NORMAL MG/DL Urine Leukocyte Esterase 2+ H NEGATIVE Urine RBC (Auto) NEGATIVE NEGATIVE Urine RBC NONE /HPF Urine WBC 2-5 /HPF Urine Squamous Epithelial Cells 2-5 /HPF Urine Crystals NONE /LPF Urine Bacteria FEW H /HPF Urine Casts NONE /LPF Urine Mucus NEGATIVE /LPF Urine Culture Indicated NO Urine Creatinine 36 30-125 MG/DL Urine Protein/Creatinine Ratio 0.64 White Blood Count 14.6 H 4.3-11.0 10^3/uL Red Blood Count 4.05 L 4.35-5.85 10^6/uL Hemoglobin 10.3 L 11.5-16.0 G/DL Hematocrit 32 L 35-52 % Mean Corpuscular Volume 78 L 80-99 FL Mean Corpuscular Hemoglobin 25 25-34 PG Mean Corpuscular Hemoglobin Concent 33 32-36 G/DL Red Cell Distribution Width 15.2 H 10.0-14.5 % Platelet Count 417 H 130-400 10^3/uL Mean Platelet Volume 11.1 H 7.4-10.4 FL Neutrophils (%) (Auto) 75 42-75 % Lymphocytes (%) (Auto) 16 12-44 % Monocytes (%) (Auto) 8 0-12 % Eosinophils (%) (Auto) 1 0-10 % Basophils (%) (Auto) 0 0-10 % Neutrophils # (Auto) 11.0 H 1.8-7.8 X 10^3 Lymphocytes # (Auto) 2.3 1.0-4.0 X 10^3 Monocytes # (Auto) 1.2 H 0.0-1.0 X 10^3 Eosinophils # (Auto) 0.1 0.0-0.3 10^3/uL Basophils # (Auto) 0.0 0.0-0.1 10^3/uL Neutrophils % (Manual) 76 % Lymphocytes % (Manual) 14 % Monocytes % (Manual) 6 % Eosinophils % (Manual) 3 % Basophils % (Manual) 0 % Band Neutrophils 1 % Anisocytosis SLIGHT Sodium Level 135 135-145 MMOL/L Potassium Level 4.7 3.6-5.0 MMOL/L Chloride Level 108 H 98-107 MMOL/L Carbon Dioxide Level 20 L 21-32 MMOL/L Anion Gap 7 5-14 MMOL/L Blood Urea Nitrogen 9 7-18 MG/DL Creatinine 0.58 L 0.60-1.30 MG/DL Estimat Glomerular Filtration Rate > 60 BUN/Creatinine Ratio 16 Glucose Level 78 70-105 MG/DL Uric Acid 3.6 2.6-7.2 MG/DL Calcium Level 9.0 8.5-10.1 MG/DL Total Bilirubin 0.2 0.1-1.0 MG/DL Aspartate Amino Transf (AST/SGOT) 13 5-34 U/L Alanine Aminotransferase (ALT/SGPT) 16 0-55 U/L Alkaline Phosphatase 125 40-136 U/L Total Protein 7.0 6.4-8.2 GM/DL Albumin 3.3 3.2-4.5 GM/DL Allergies and Home Medications Allergies Coded Allergies: No Known Drug Allergies (Unverified , 11/16/15) Home Medications Cephalexin 500 Mg Capsule, 500 MG PO QID Prescribed by: TOMAS REA on 05/29/172032 Vit W-Ca,Fe,FA(<1 mg) 1 Each Tablet, 1 EACH PO DAILY, (Reported) Patient Home Medication List Home Medication List Reviewed: Yes OB - History Hx of Present Care: Yes Ultrasounds: Normal mid trimester US Obstetrical Complications: Pre-eclampsia Medical Complications: None (obesity) Delivery History Hx Blood Disorders: No Adverse Rxn to Tranfusion: No Patient Past Medical History no chronic medical problems Social History/Family History HIV/AIDS: No Recent Infectious Disease Expo: No Sexually Transmitted Disease: No Alcohol Use: Denies Use Recreational Drug Use: No Immunizations Date of Influenza Vaccine: May 09, 2016 OB - Admission Exam Physical Exam HEENT: NCAT Heart: Rhythm Normal Lungs: Clear Abdomen: Gravid Extremities: Normal Reflexes: Normal Heart Rate: 130's Accelerations: Accelerations Present Decelerations: No Decelerations Short Term Variability: Present Process Engineering Manager Variability: Average (6-25) Contractions on Admission: >10 Minutes Apart Intensity: Mild Labs Laboratory Tests Test 10/13/17 14:50 10/13/17 15:15 Range/Units Urine Color YELLOW Urine Clarity CLEAR Urine pH 6.5 5-9 Urine Specific [place] 1.010 L 1.016-1.022 Urine Protein 23 H 6-12 MG/DL Urine Glucose (UA) NEGATIVE NEGATIVE Urine Ketones NEGATIVE NEGATIVE Urine Nitrite NEGATIVE NEGATIVE Urine Bilirubin NEGATIVE NEGATIVE Urine Urobilinogen NORMAL NORMAL MG/DL Urine Leukocyte Esterase 2+ H NEGATIVE Urine RBC (Auto) NEGATIVE NEGATIVE Urine RBC NONE /HPF Urine WBC 2-5 /HPF Urine Squamous Epithelial Cells 2-5 /HPF Urine Crystals NONE /LPF Urine Bacteria FEW H /HPF Urine Casts NONE /LPF Urine Mucus NEGATIVE /LPF Urine Culture Indicated NO Urine Creatinine 36 30-125 MG/DL Urine Protein/Creatinine Ratio 0.64 White Blood Count 14.6 H 4.3-11.0 10^3/uL Red Blood Count 4.05 L 4.35-5.85 10^6/uL Hemoglobin 10.3 L 11.5-16.0 G/DL Hematocrit 32 L 35-52 % Mean Corpuscular Volume 78 L 80-99 FL Mean Corpuscular Hemoglobin 25 25-34 PG Mean Corpuscular Hemoglobin Concent 33 32-36 G/DL Red Cell Distribution Width 15.2 H 10.0-14.5 % Platelet Count 417 H 130-400 10^3/uL Mean Platelet Volume 11.1 H 7.4-10.4 FL Neutrophils (%) (Auto) 75 42-75 % Lymphocytes (%) (Auto) 16 12-44 % Monocytes (%) (Auto) 8 0-12 % Eosinophils (%) (Auto) 1 0-10 % Basophils (%) (Auto) 0 0-10 % Neutrophils # (Auto) 11.0 H 1.8-7.8 X 10^3 Lymphocytes # (Auto) 2.3 1.0-4.0 X 10^3 Monocytes # (Auto) 1.2 H 0.0-1.0 X 10^3 Eosinophils # (Auto) 0.1 0.0-0.3 10^3/uL Basophils # (Auto) 0.0 0.0-0.1 10^3/uL Neutrophils % (Manual) 76 % Lymphocytes % (Manual) 14 % Monocytes % (Manual) 6 % Eosinophils % (Manual) 3 % Basophils % (Manual) 0 % Band Neutrophils 1 % Anisocytosis SLIGHT Sodium Level 135 135-145 MMOL/L Potassium Level 4.7 3.6-5.0 MMOL/L Chloride Level 108 H 98-107 MMOL/L Carbon Dioxide Level 20 L 21-32 MMOL/L Anion Gap 7 5-14 MMOL/L Blood Urea Nitrogen 9 7-18 MG/DL Creatinine 0.58 L 0.60-1.30 MG/DL Estimat Glomerular Filtration Rate > 60 BUN/Creatinine Ratio 16 Glucose Level 78 70-105 MG/DL Uric Acid 3.6 2.6-7.2 MG/DL Calcium Level 9.0 8.5-10.1 MG/DL Total Bilirubin 0.2 0.1-1.0 MG/DL Aspartate Amino Transf (AST/SGOT) 13 5-34 U/L Alanine Aminotransferase (ALT/SGPT) 16 0-55 U/L Alkaline Phosphatase 125 40-136 U/L Total Protein 7.0 6.4-8.2 GM/DL Albumin 3.3 3.2-4.5 GM/DL OB - Assessment/Plan/Diagnosis Assessment Assessment: section Admission Dx 21 yo @ 37.5 weeks Mild PreE Oligohydramnios Previous BMI 45 Admission Status: Inpatient Order (span 2 midnights) Reason for Inpatient Admission: 21 yo @ 37.5 weeks Mild PreE Oligohydramnios Previous BMI 45 Plan Plan: Section Discharge Diagnosis Diagnosis: 21 yo @ 37.5 weeks Mild PreE Oligohydramnios Previous BMI 45 SERINA VILLALTA DO Oct 13, 2017 5:23 pm
[2017-10-13] MEDS ORDERED: METOCLOPRAMIDE INJ 10 MG/2 ML (REGLAN) ONE (19:34)
[2017-10-13] MEDS ORDERED: CITRIC ACID/SOB CIT (BICITRA) 30 ML UDC ONE (19:34)
[2017-10-13] MEDS ORDERED: FAMOTIDINE 20MG/2ML IV (PEPCID) ONE (19:34)
[2017-10-13] MEDS ORDERED: fentaNYL INJECTION 100 MCG/2 ML AMP ONE (19:36)
[2017-10-13] MEDS ORDERED: OXYTOCIN/NORMAL SALINE 1,000 ML IV ONE (19:36)
[2017-10-13] MEDS ORDERED: ceFAZolin 2 GM IV Premixed 50 ML ONE (19:48)
[2017-10-13] MEDS ORDERED: KETOROLAC 30 MG/ML VIAL ONE (20:42)
[2017-10-13] MEDS ORDERED: OXYTOCIN/NORMAL SALINE 500 ML IV SCH (20:48)
--- NOTE | 2017-10-13 20:55 | Discharge Inst-Women's Service ---
Discharge Inst-Women's Serv Depart Medication/Instructions New, Converted or Re-Newed RX: RX on Chart Consults/Follow Up Additional Follow Up: Yes Orders/Referrals Dr. Mims in 7-10 days, Dr. Sarabia in 6 weeks Activity Activity: Activity as Tolerated Driving Instructions: No Driving for 1 Week NO SMOKING: NO SMOKING Nothing Inside Vagina: No Douching, No [place], No Tampons Diet Discharge Diet: No Restrictions Symptoms to Report to : Bleeding Excessive, Pain Increased, Fever Over 101 Degrees F, Vaginal Bleeding Increase, Questions/Concerns For Any Problems or Questions: Contact Your Physician Skin/Wound Care Infection Signs and Symptoms: Increased Redness, Foul Odor of Wound, Increased Drainage, Skin Itchy or Has a Rash, Increased Swelling, Temperature Above 101 F Operative Area Clean and Dry: Keep Incision Clean/Dry Stitches/[place]/Dermabond: Dermabond, Care of Stitches Bathing Instructions: SERINA Mcgraw DO Oct 13, 2017 20:55
[2017-10-13] MEDS ORDERED: IBUP-1773 PO (20:57)
[2017-10-13] MEDS ORDERED: ACHD5005 PO (20:57)
[2017-10-13] MEDS ORDERED: FERR325T18 PO (20:57)
[2017-10-13] MEDS ORDERED: DOCU100C37 PO (20:57)
[2017-10-13] MEDS: DOCUSATE SODIUM 100 MG (COLACE) CAP PO SCH (21:00)
[2017-10-13] MEDS ORDERED: TETANUS,DIPTH,PERTUSS P/F (BOOSTRIX) 0.5 ML VIAL IM SCH (21:00)
[2017-10-13] MEDS: KETOROLAC 30 MG/ML VIAL IVP SCH (21:00)
[2017-10-13] MEDS ORDERED: ONDANSETRON 4 MG/2 ML (SDV) Z0FRAN IVP PRN (21:00)
[2017-10-13] MEDS ORDERED: MEASLES,MUMPS,RUBELLA 1 EA INJ SC SCH (21:00)
[2017-10-13] MEDS ORDERED: HYDROmorphone (DILAUDID) 2 MG/ML VIAL IVP PRN (21:00)
[2017-10-13] MEDS: IBUPROFEN 600 MG (MOTRIN) TAB PO SCH (22:07)
[2017-10-13] MEDS: CATHETER FLUSH 10 ML SYR IV SCH (22:08)
[2017-10-14] MEDS: HYDROcodone/APAP 5 MG/325 MG (LORTAB) TAB PO PRN ×4 (00:24→21:31)
[2017-10-14 02:15] VITALS: BP 129/76
[2017-10-14] MEDS: IBUPROFEN 600 MG (MOTRIN) TAB PO SCH ×4 (03:00→23:34)
[2017-10-14] MEDS: KETOROLAC 30 MG/ML VIAL IVP SCH ×2 (03:05→21:18)
--- NOTE | 2017-10-14 05:01 | OPERATIVE REPORT ---
DATE OF SERVICE: PREOPERATIVE DIAGNOSES: 1. 21-year-old G2, P1 at 37 weeks and 5 days gestation. 2. Previous section. 3. Mild preeclampsia. 4. Oligohydramnios at 3.7 cm. POSTOPERATIVE DIAGNOSES: 1. 21-year-old G2, P1 at 37 weeks and 5 days gestation. 2. Previous section. 3. Mild preeclampsia. 4. Oligohydramnios at 3.7 cm. PROCEDURE: Repeat low transverse section. SURGEON: Ko Mims DO. RESIDENTIAL SALES REP: Dr. Yaw Sarabia. ANESTHESIA: Spinal. ESTIMATED BLOOD LOSS: 400 mL. URINE OUTPUT: 100 mL clear at the end of the procedure. FLUIDS: 900 mL lactated Ringer solution. FINDINGS: Live female weighing 5 pounds 15 ounces, Apgars of 8 and 9. Grossly normal appearing uterus, bilateral fallopian tubes with an endometrial septum noted down the middle of the endometrium. SPECIMEN SENT: Placenta. INDICATIONS FOR PROCEDURE: This 21-year-old was 37 weeks and 5 day gestation when she had been seen in my office for consultation and repeat . She had sought her care at the [facility] with Dr. Sarabia. At the time of the consultation today, she is found to have blood pressure 140s/90s and sent upstairs for further evaluation. Due to her proximity to term , I decided to order a biophysical profile with this elevation of blood pressure as well as a screening lab panel for preeclampsia which was found to have an elevated urine protein to creatinine ratio of 0.64 diagnosing the patient with preeclampsia and oligohydramnios was noted on the ultrasound. Due to these indications, I discussed with the patient proceeding with delivery today. Risks of the procedure was again reviewed with the patient in detail. She was familiar with procedure from the previous delivery. All of her questions were answered and consent was obtained in the preoperative area. OPERATIVE REPORT IN DETAIL: Once in the operating room, spinal anesthesia was found to be adequate. She was placed in supine position with leftward tilt, prepped and draped in normal sterile fashion. A Pfannenstiel skin incision was made through the previously existing scar using knife and carried down to underlying fascia using Bovie cautery. Fascial incision extended laterally using Bovie cautery. The superior edge of the fascial incision was then grasped with Steff clamps, tented up and dissected off the underlying rectus muscles. The inferior aspect of the fascial incision was then grasped with Steff clamps, tented up and dissected off the underlying rectus muscles. The rectus muscles were then dissected down the midline using Guzman scissors, which exposed the peritoneum which entered bluntly and extended using blunt traction. The Mike ring retractor was placed within the peritoneal incision, which offers excellent lateral sidewall retraction. I then identified the lower uterine segment and it was found to be thinned out. I make an incision to the vesicouterine peritoneum using a knife and bluntly dissected lower uterine segment. Vesicouterine peritoneum off of the lower uterine segment. I then pursued laminotomy until membranes are visualized at which point I extended the uterine incision laterally and superiorly using bandage scissors. Amniotomy was performed. Clear fluid was noted. The was found in vertex presentation. With gentle fundal pressure, the infant's head was delivered to the incision where the nares and oropharynx were bulb suctioned. The anterior and posterior shoulders were delivered and the was then brought into the operative field. The cord was doubly clamped and cut and was taken off of the operative field by Dr. Sarabia. Cord blood was collected, 3-vessel cord was intact. Placenta was delivered spontaneously thereafter. IV Pitocin was initiated to facilitate uterine contraction. Uterine fundus became firmer with bimanual massage. The uterus was exteriorized and cleared off endometrial clots and debris where the endometrial septum is noted. I then proceeded with closing the uterine incision using 0 Vicryl suture in a running locking fashion. Second layer of imbricating 0 Monocryl was placed. Excellent hemostasis was noted after doing so. I then placed the uterus back within the pelvis and copiously irrigated the pelvis using normal saline. Once again, there is no active bleeding noted from any of my dissection planes. I then placed an Interceed antiadhesive over my low transverse incision and proceed with closing the peritoneum using 3-0 Vicryl suture in running fashion. The rectus muscle reapproximated using 3-0 Vicryl suture in running fashion. Fascia was reapproximated using 0 Vicryl suture in running fashion. Subcutaneous tissue reapproximated using 3-0 plain in interrupted subcutaneous stitch and skin reapproximated using 4-0 Monocryl running subcuticular. Dermabond was applied to incision. Sterile dressings with adhesive white tape. The patient tolerated the procedure well and sent to recovery area in stable condition. Lap and sponge counts correct at the end of the procedure. Instrument counts were correct as well. Two grams of Ancef were given preoperatively for infection prophylaxis. Job ID: [id number] DocumentID: [id number] Dictated Date: 10/13/2017 20:54:57 Barrel Lathe Operator Outside Date: 10/14/2017 05:00:59 Dictated By: DO MARY ROBINS
[2017-10-14 05:37] LABS: BASOPHILS % (AUTO) 0 % (0-10); EOSINOPHILS # (AUTO) 0.1 10^3/uL (0.0-0.3); EOSINOPHILS % (AUTO) 1 % (0-10); HEMATOCRIT 28 % (35-52); LYMPHOCYTES # (AUTO) 2.3 X 10^3 (1.0-4.0); LYMPHOCYTES % (AUTO) 19 % (12-44); MEAN CORPUSCULAR HEMOGLOBIN 25 PG (25-34); MEAN CORPUSCULAR HGB CONC 32 G/DL (32-36); MEAN CORPUSCULAR VOLUME 79 FL (80-99); MEAN PLATELET VOLUME 11.4 FL (7.4-10.4); MONOCYTES % (AUTO) 8 % (0-12); NEUTROPHILS # (AUTO) 8.7 X 10^3 (1.8-7.8); NEUTROPHILS % (AUTO) 72 % (42-75); PLATELET COUNT 327 10^3/uL (130-400); RED CELL DISTRIBUTION WIDTH 15.3 % (10.0-14.5); WHITE BLOOD COUNT 12.1 10^3/uL (4.3-11.0)
[2017-10-14 06:15] VITALS: BP 132/77
[2017-10-14] MEDS: CATHETER FLUSH 10 ML SYR IV SCH (06:28)
[2017-10-14 09:00] VITALS: BP 130/72
--- NOTE | 2017-10-14 09:15 | Postpartum Progress Note ---
Note Note Day # 1 Subjective: Patient is without complaints. Ambulating, voiding. Tolerating a regular diet without nausea or vomiting. Normal lochia. Pain is well controlled with oral pain medications, but hasn't gotten up to shower today. Objective: Vital Sign - Last 24 Hours 10/13/17 10/13/17 10/13/17 10/13/17 14:50 15:55 16:25 16:50 Temp 98.2 99.1 Pulse 86 88 93 97 Resp 18 18 18 18 B/P (MAP) 139/76 (97) 141/67 (91) 164/70 (101) Pulse Ox 99 98 99 99 O2 Delivery Room Air Room Air Room Air Room Air 10/13/17 10/13/17 10/13/17 10/13/17 17:00 17:25 18:00 18:30 Temp 98.8 Pulse 91 93 101 88 Resp 18 18 18 18 B/P (MAP) 119/52 (74) 120/66 (84) 138/77 (97) 156/92 (113) Pulse Ox 97 99 O2 Delivery Room Air Room Air Room Air Room Air 10/13/17 10/13/17 10/13/17 10/13/17 19:00 19:25 19:35 21:55 Temp 98.3 97.5 Pulse 88 93 82 83 Resp 18 18 18 18 B/P (MAP) 133/84 (100) 145/73 (97) 123/58 (79) 155/90 (111) Pulse Ox 97 O2 Delivery Room Air Room Air Room Air Room Air 10/13/17 10/14/17 10/14/17 23:44 02:15 06:15 Temp 96.9 97.9 Pulse 84 89 Resp 18 18 B/P (MAP) 129/76 (93) 132/77 (95) Pulse Ox 98 99 O2 Delivery Room Air Room Air Room Air Intake and Output 10/13/17 10/13/17 10/14/17 15:00 23:00 07:00 Intake Total 1050 ml 2300 ml Output Total 300 ml 200 ml Balance 750 ml 2100 ml Laboratory Tests Test 10/13/17 14:50 10/13/17 15:15 10/14/17 05:25 Range/Units Urine Color YELLOW Urine Clarity CLEAR Urine pH 6.5 5-9 Urine Specific Kirby 1.010 L 1.016-1.022 Urine Protein 23 H 6-12 MG/DL Urine Glucose (UA) NEGATIVE NEGATIVE Urine Ketones NEGATIVE NEGATIVE Urine Nitrite NEGATIVE NEGATIVE Urine Bilirubin NEGATIVE NEGATIVE Urine Urobilinogen NORMAL NORMAL MG/DL Urine Leukocyte Esterase 2+ H NEGATIVE Urine RBC (Auto) NEGATIVE NEGATIVE Urine RBC NONE /HPF Urine WBC 2-5 /HPF Urine Squamous Epithelial Cells 2-5 /HPF Urine Crystals NONE /LPF Urine Bacteria FEW H /HPF Urine Casts NONE /LPF Urine Mucus NEGATIVE /LPF Urine Culture Indicated NO Urine Creatinine 36 30-125 MG/DL Urine Protein/Creatinine Ratio 0.64 White Blood Count 14.6 H 12.1 H 4.3-11.0 10^3/uL Red Blood Count 4.05 L 3.60 L 4.35-5.85 10^6/uL Hemoglobin 10.3 L 9.0 L 11.5-16.0 G/DL Hematocrit 32 L 28 L 35-52 % Mean Corpuscular Volume 78 L 79 L 80-99 FL Mean Corpuscular Hemoglobin 25 25 25-34 PG Mean Corpuscular Hemoglobin Concent 33 32 32-36 G/DL Red Cell Distribution Width 15.2 H 15.3 H 10.0-14.5 % Platelet Count 417 H 327 130-400 10^3/uL Mean Platelet Volume 11.1 H 11.4 H 7.4-10.4 FL Neutrophils (%) (Auto) 75 72 42-75 % Lymphocytes (%) (Auto) 16 19 12-44 % Monocytes (%) (Auto) 8 8 0-12 % Eosinophils (%) (Auto) 1 1 0-10 % Basophils (%) (Auto) 0 0 0-10 % Neutrophils # (Auto) 11.0 H 8.7 H 1.8-7.8 X 10^3 Lymphocytes # (Auto) 2.3 2.3 1.0-4.0 X 10^3 Monocytes # (Auto) 1.2 H 1.0 0.0-1.0 X 10^3 Eosinophils # (Auto) 0.1 0.1 0.0-0.3 10^3/uL Basophils # (Auto) 0.0 0.0 0.0-0.1 10^3/uL Neutrophils % (Manual) 76 % Lymphocytes % (Manual) 14 % Monocytes % (Manual) 6 % Eosinophils % (Manual) 3 % Basophils % (Manual) 0 % Band Neutrophils 1 % Anisocytosis SLIGHT Sodium Level 135 135-145 MMOL/L Potassium Level 4.7 3.6-5.0 MMOL/L Chloride Level 108 H 98-107 MMOL/L Carbon Dioxide Level 20 L 21-32 MMOL/L Anion Gap 7 5-14 MMOL/L Blood Urea Nitrogen 9 7-18 MG/DL Creatinine 0.58 L 0.60-1.30 MG/DL Estimat Glomerular Filtration Rate > 60 BUN/Creatinine Ratio 16 Glucose Level 78 70-105 MG/DL Uric Acid 3.6 2.6-7.2 MG/DL Calcium Level 9.0 8.5-10.1 MG/DL Total Bilirubin 0.2 0.1-1.0 MG/DL Aspartate Amino Transf (AST/SGOT) 13 5-34 U/L Alanine Aminotransferase (ALT/SGPT) 16 0-55 U/L Alkaline Phosphatase 125 40-136 U/L Total Protein 7.0 6.4-8.2 GM/DL Albumin 3.3 3.2-4.5 GM/DL Physical Exam: General - Alert and oriented, no apparent distress Abdomen - Soft, appropriately tender to palpation, non-distended, fundus firm at umbilicus Extremities - no edema, negative Edwin's bilaterally Incision- c/d/i Assessment: POD 1 RLTCS Acute blood loss anemia superimposed on anemia of BMI > 45 Mild PreE Plan: Routine care. Encourage breast feeding. Encourage ambulation. Ferrous sulfate supplementation. Plan for discharge tomorrow Vitals - Labs Vital Signs - I&O Vital Signs Date Time Temp Pulse Resp B/P (MAP) Pulse Ox O2 Delivery O2 Flow Rate FiO2 10/14/17 06:15 97.9 89 18 132/77 (95) 99 Room Air 10/14/17 02:15 96.9 84 18 129/76 (93) 98 Room Air 10/13/17 23:44 Room Air 10/13/17 21:55 97.5 83 18 155/90 (111) 97 Room Air 10/13/17 19:35 82 18 123/58 (79) Room Air 10/13/17 19:25 98.3 93 18 145/73 (97) Room Air 10/13/17 19:00 88 18 133/84 (100) Room Air 10/13/17 18:30 98.8 88 18 156/92 (113) Room Air 10/13/17 18:00 101 18 138/77 (97) Room Air 10/13/17 17:25 93 18 120/66 (84) 99 Room Air 10/13/17 17:00 91 18 119/52 (74) 97 Room Air 10/13/17 16:50 97 18 99 Room Air 10/13/17 16:25 93 18 164/70 (101) 99 Room Air 10/13/17 15:55 99.1 88 18 141/67 (91) 98 Room Air 10/13/17 14:50 98.2 86 18 139/76 (97) 99 Room Air I & O 10/14/17 07:00 Intake Total 3350 ml Output Total 500 ml Balance 2850 ml Labs Laboratory Tests 10/13/17 14:50: Urine Color YELLOW, Urine Clarity CLEAR, Urine pH 6.5, Urine Specific Kirby 1.010L, Urine Protein 23H, Urine Glucose (UA) NEGATIVE, Urine Ketones NEGATIVE, Urine Nitrite NEGATIVE, Urine Bilirubin NEGATIVE, Urine Urobilinogen NORMAL, Urine Leukocyte Esterase 2+H, Urine RBC (Auto) NEGATIVE, Urine RBC NONE, Urine WBC 2-5, Urine Squamous Epithelial Cells 2-5, Urine Crystals NONE, Urine Bacteria FEWH, Urine Casts NONE, Urine Mucus NEGATIVE, Urine Culture Indicated NO, Urine Creatinine 36, Urine Protein/Creatinine Ratio 0.64 10/13/17 15:15: White Blood Count 14.6H, Red Blood Count 4.05L, Hemoglobin 10.3L, Hematocrit 32L , Mean Corpuscular Volume 78L, Mean Corpuscular Hemoglobin 25, Mean Corpuscular Hemoglobin Concent 33, Red Cell Distribution Width 15.2H, Platelet Count 417H, Mean Platelet Volume 11.1H, Neutrophils (%) (Auto) 75, Lymphocytes (%) (Auto) 16 , Monocytes (%) (Auto) 8, Eosinophils (%) (Auto) 1, Basophils (%) (Auto) 0, Neutrophils # (Auto) 11.0H, Lymphocytes # (Auto) 2.3, Monocytes # (Auto) 1.2H, Eosinophils # (Auto) 0.1, Basophils # (Auto) 0.0, Neutrophils % (Manual) 76, Lymphocytes % (Manual) 14, Monocytes % (Manual) 6, Eosinophils % (Manual) 3, Basophils % (Manual) 0, Band Neutrophils 1, Anisocytosis SLIGHT, Sodium Level 135, Potassium Level 4.7, Chloride Level 108H, Carbon Dioxide Level 20L, Anion Gap 7, Blood Urea Nitrogen 9, Creatinine 0.58L, Estimat Glomerular Filtration Rate > 60, BUN/Creatinine Ratio 16, Glucose Level 78, Uric Acid 3.6, Calcium Level 9.0, Total Bilirubin 0.2, Aspartate Amino Transf (AST/SGOT) 13, Alanine Aminotransferase (ALT/SGPT) 16, Alkaline Phosphatase 125, Total Protein 7.0, Albumin 3.3 10/14/17 05:25: White Blood Count 12.1H, Red Blood Count 3.60L, Hemoglobin 9.0L, Hematocrit 28L , Mean Corpuscular Volume 79L, Mean Corpuscular Hemoglobin 25, Mean Corpuscular Hemoglobin Concent 32, Red Cell Distribution Width 15.3H, Platelet Count 327, Mean Platelet Volume 11.4H, Neutrophils (%) (Auto) 72, Lymphocytes (%) (Auto) 19 , Monocytes (%) (Auto) 8, Eosinophils (%) (Auto) 1, Basophils (%) (Auto) 0, Neutrophils # (Auto) 8.7H, Lymphocytes # (Auto) 2.3, Monocytes # (Auto) 1.0, Eosinophils # (Auto) 0.1, Basophils # (Auto) 0.0 SERINA VILLALTA DO Oct 14, 2017 9:15 am
[2017-10-14] MEDS: DOCUSATE SODIUM 100 MG (COLACE) CAP PO SCH ×2 (09:50→21:30)
--- NOTE | 2017-10-14 14:54 | Anesthesia-Regional Post-Op ---
Regional Patient Condition Mental Status: Alert, Oriented x3 Circulation: Same as Pre-Op Headache: Absent Sensation: Full Recovery Motor Block: Absent Post Op Complications Complications None Follow Up Care/Instructions Patient Instructions None needed. Anesthesia/Patient Condition Patient is doing well, no complaints, stable vital signs, no apparent adverse anesthesia problems. No complications reported per nursing. JEREMIAH HAINES CRNA Oct 14, 2017 14:54
[2017-10-14 18:00] VITALS: BP 159/86
[2017-10-14 23:43] VITALS: BP 147/78
[2017-10-15] MEDS: HYDROcodone/APAP 5 MG/325 MG (LORTAB) TAB PO PRN (05:56)
[2017-10-15] MEDS: IBUPROFEN 600 MG (MOTRIN) TAB PO SCH ×2 (05:56→11:40)
[2017-10-15 06:00] VITALS: BP 150/89
--- NOTE | 2017-10-15 08:18 | Postpartum Progress Note ---
Note Note Day # 2 Subjective: Patient is without complaints. Ambulating, voiding. Tolerating a regular diet without nausea or vomiting. Normal lochia. Pain is well controlled with oral pain medications. Denies díaz/cp/sob. Objective: Vital Sign - Last 24 Hours 10/14/17 10/14/17 10/14/17 10/15/17 09:00 18:00 23:43 06:00 Temp 97.9 97.0 98.3 97.7 Pulse 82 92 89 88 Resp 18 18 17 18 B/P (MAP) 130/72 (91) 159/86 (110) 147/78 (101) 150/89 (109) Pulse Ox 99 99 99 96 O2 Delivery Room Air Room Air Room Air Room Air Intake and Output 10/14/17 10/14/17 10/15/17 15:00 23:00 07:00 Intake Total 1400 ml Output Total 800 ml Balance 600 ml Physical Exam: General - Alert and oriented, no apparent distress Abdomen - Soft, appropriately tender to palpation, non-distended, fundus firm at umbilicus Extremities - no edema, negative Edwin's bilaterally Incision- c/d/i Assessment: POD 2 RLTCS Mild preE Acute blood loss anemia Plan: Routine care. Encourage breast feeding. Encourage ambulation. Ferrous sulfate supplementation. Plan for discharge today Vitals - Labs Vital Signs - I&O Vital Signs Date Time Temp Pulse Resp B/P (MAP) Pulse Ox O2 Delivery O2 Flow Rate FiO2 10/15/17 06:00 97.7 88 18 150/89 (109) 96 Room Air 10/14/17 23:43 98.3 89 17 147/78 (101) 99 Room Air 10/14/17 18:00 97.0 92 18 159/86 (110) 99 Room Air 10/14/17 09:00 97.9 82 18 130/72 (91) 99 Room Air I & O 10/15/17 07:00 Intake Total 1400 ml Output Total 800 ml Balance 600 ml SERINA VILLALTA DO Oct 15, 2017 8:18 am
[2017-10-15] MEDS ORDERED: LABE200T3 PO (08:19)
[2017-10-15] MEDS ORDERED: LABETALOL 200 MG (NORMODYNE) TAB PO SCH (09:00)
[2017-10-15 09:20] VITALS: BP 146/100
[2017-10-15] MEDS: DOCUSATE SODIUM 100 MG (COLACE) CAP PO SCH (09:24)
[2017-10-15 12:45] VITALS: BP 107/70
== END 2017-10-15 14:40 | disposition home or self-care (01) | DRG 765 ==
LOC: WSo 14:26 → LDRP 14:26 → WSo 16:15 → LDRP 21:59
PROVIDERS: ADMIT Obstetrics & Gynecology; ATTEND Obstetrics & Gynecology
PROC: 10D00Z1 Extraction of Products of Conception, Low, Open Approach (ICD-10-PCS; principal; 2017-10-13 19:55)
DX: O14.03 Mild to moderate pre-eclampsia, third trimester (principal); O41.03X0 Oligohydramnios, third trimester, not applicable or unspecified; O34.211 Maternal care for low transverse scar from previous cesarean delivery; O99.013 Anemia complicating pregnancy, third trimester; O99.03 Anemia complicating the puerperium; D64.9 Anemia, unspecified; O99.213 Obesity complicating pregnancy, third trimester; E66.9 Obesity, unspecified; Z3A.37 37 weeks gestation of pregnancy; Z37.0 Single live birth
CPT/HCPCS: 36415; 76805; 76819; 80053; 81000; 82570; 84156; 84550; 85007; 85025; 85027; 86850; 86900; 86901; 94664